=== PATIENT | female | born 1945 | race Caucasian/White ===

== ENCOUNTER 2017-03-31 07:48 | Emergency (ER) | payer OTHER ==
[~2017-03-31] VITALS: Ht 162.6 cm; Wt 67.0 kg
[~2017-03-31 07:48] MED LIST: ASPI-496 PO; CHOL2000 PO; NITR100C56 PO; PRAV20TA2 PO; VALS320T2 PO
[2017-03-31] MEDS ORDERED: BUPIVACAINE/PF-EPI 0.25% 1:200K INFIL ONE (08:00)
[2017-03-31] MEDS ORDERED: OXYMETAZOLINE NASAL SPRAY 0.05%, 15ML ONE (08:00)
[2017-03-31] MEDS ORDERED: BUPIVACAINE 0.25% ONE (08:00)
[2017-03-31] MEDS ORDERED: LIDOCAINE GEL 2%, 5ML ONE (08:04)
[2017-03-31] MEDS ORDERED: LIDOCAINE GEL 2%, 5ML TP ONE (08:30)
[2017-03-31 08:52] VITALS: BP 154/97
[2017-03-31] MEDS ORDERED: FLUTICASONE NASAL SPRAY 16GM NAS SCH (09:00)
== END 2017-03-31 08:55 | disposition home or self-care (01) ==
LOC: ED 08:23
DX: R04.0 Epistaxis (principal); E78.5 Hyperlipidemia, unspecified; I10 Essential (primary) hypertension; Z88.0 Allergy status to penicillin
CPT/HCPCS: 30901; 99284

== ENCOUNTER → 2018-07-03 | Outpatient (CLI) | payer OTHER | END | disposition home or self-care (01) | LOC: CFH 09:19 | PROVIDERS: ATTEND Family Medicine | DX: Z12.31 Encounter for screening mammogram for malignant neoplasm of breast (principal); Z13.820 Encounter for screening for osteoporosis; M85.89 Other specified disorders of bone density and structure, multiple sites; N95.8 Other specified menopausal and perimenopausal disorders | CPT/HCPCS: 77063; 77080; 77067 ==

== ENCOUNTER 2018-10-01 21:56 | Observation (INO) | payer OTHER ==
[~2018-10-01] VITALS: Ht 162.6 cm; Wt 62.5 kg
[2018-10-01] MEDS ORDERED: ACETAMINOPHEN 325 MG TABLET ONE (22:16)
[2018-10-01] MEDS ORDERED: ONDANSETRON 2MG/ML, 2ML ONE (22:17)
[2018-10-01] MEDS ORDERED: KETOROLAC 30 MG/1 ML ONE (22:17)
[2018-10-01] MEDS ORDERED: PROMETHAZINE 25 MG/ML, 1ML IM ONE (22:30)
[2018-10-01] MEDS ORDERED: SODIUM CHLORIDE 0.9% 1,000ML IVBOLUS ONE (22:30)
[2018-10-01] MEDS ORDERED: KETOROLAC 30 MG/1 ML IVPush ONE (22:30)
[2018-10-01] MEDS ORDERED: ACETAMINOPHEN 325 MG TABLET PO ONE (22:30)
[2018-10-01] MEDS ORDERED: SODIUM CHLORIDE FLUSH 10ML SYR IVF ONE (22:30)
[2018-10-01] MEDS ORDERED: ONDANSETRON 2MG/ML, 2ML IVPush ONE (22:30)
[2018-10-01] MEDS ORDERED: hydrALAzine 20 MG/ML, 1ML IV ONE ×2 (22:30→23:30)
[2018-10-01] MEDS ORDERED: hydrALAzine 20 MG/ML, 1ML ONE ×2 (22:32→23:28)
[2018-10-01] MEDS ORDERED: PROMETHAZINE 25 MG/ML, 1ML ONE (22:33)
[2018-10-01 22:36] LABS: BASOPHILS # (AUTO) 0.01 x10^3/uL (0-0.1); BASOPHILS % (AUTO) 0 % (0-1); EOSINOPHILS # (AUTO) 0.01 x10^3/uL (0-0.4); EOSINOPHILS % (AUTO) 0 % (1-7); LYMPHOCYTES # (AUTO) 0.82 x10^3/uL (1-3.4); LYMPHOCYTES % (AUTO) 8 % (22-44); MD NO; MEAN CORPUSCULAR HEMOGLOBIN 31.7 pg (27.0-34.8); MEAN CORPUSCULAR VOLUME 93.1 fL (80-100); MEAN PLATELET VOLUME 7.4 fL (7.4-10.4); MONOCYTES # (AUTO) 0.75 x10^3/uL (0.2-0.8); MONOCYTES % (AUTO) 8 % (2-9); NEUTROPHILS # (AUTO) 8.13 x10^3/uL (1.8-6.8); NEUTROPHILS % (AUTO) 84 % (42-75); PLATELET COUNT 297 x10^3/uL (130-400); RED BLOOD COUNT 4.64 x10^6/uL (3.82-5.3); RED CELL DISTRIBUTION WIDTH 13.4 % (9.6-15.2)
[2018-10-01 22:44] LABS: ALANINE AMINOTRANSFERASE 19 U/L (12-78); ALBUMIN 3.6 g/dL (3.4-5.0); ANION GAP 10 mmol/L (5-15); CALCIUM 8.7 mg/dL (8.5-10.1); CHLORIDE 104 mmol/L (98-107); CREATININE 0.67 mg/dL (0.55-1.02)
[2018-10-01 22:48] LABS: ALKALINE PHOSPHATASE 72 U/L (45-117); BILIRUBIN,TOTAL 0.5 mg/dL (0.2-1.0); TOTAL PROTEIN 7.2 g/dL (6.4-8.2); TROPONIN I < 0.015 ng/mL (0.000-0.045)
[2018-10-01 23:05] LABS: CULTURE INDICATED? YES; MICROSCOPIC INDICATED
[2018-10-01] MEDS ORDERED: NITROGLYCERIN OINT 2%, 1GM TP ONE ×2 (23:29→23:30)
[2018-10-02] MEDS ORDERED: BISACODYL 10 MG SUPP PR PRN
[2018-10-02] MEDS ORDERED: PRAVASTATIN 20 MG TABLET PO SCH
[2018-10-02] MEDS ORDERED: hydrALAzine 20 MG/ML, 1ML IVPush PRN
[2018-10-02] MEDS ORDERED: CHOLECALCIFEROL 1,000 UNIT TABLET PO SCH
[2018-10-02] MEDS ORDERED: ASPIRIN 81 MG TABLET CHEW PO SCH
[2018-10-02] MEDS ORDERED: ONDANSETRON ODT 4 MG PO PRN
[2018-10-02] MEDS ORDERED: VALSARTAN 320 MG TABLET PO SCH
[2018-10-02] MEDS ORDERED: POLYETHYLENE GLYCOL 17 GM PACKET PO PRN
[2018-10-02] MEDS ORDERED: ACETAMINOPHEN 325 MG TABLET PO PRN
[2018-10-02 00:26] VITALS: BP 128/67
[2018-10-02] MEDS: LISINOPRIL 10 MG TABLET PO SCH ×3 (00:54→08:29)
[2018-10-02] MEDS: SODIUM CHLORIDE FLUSH 10ML SYR IVF SCH ×2 (00:54→08:27)
[2018-10-02 04:59] LABS: BASOPHILS # (AUTO) 0.03 x10^3/uL (0-0.1); BASOPHILS % (AUTO) 0 % (0-1); EOSINOPHILS # (AUTO) 0.06 x10^3/uL (0-0.4); EOSINOPHILS % (AUTO) 1 % (1-7); LYMPHOCYTES # (AUTO) 1.55 x10^3/uL (1-3.4); LYMPHOCYTES % (AUTO) 16 % (22-44); MD NO; MEAN CORPUSCULAR HEMOGLOBIN 31.9 pg (27.0-34.8); MEAN CORPUSCULAR HGB CONC 34.3 g/dL (32.4-35.8); MEAN CORPUSCULAR VOLUME 92.8 fL (80-100); MEAN PLATELET VOLUME 7.4 fL (7.4-10.4); MONOCYTES # (AUTO) 1.15 x10^3/uL (0.2-0.8); MONOCYTES % (AUTO) 12 % (2-9); NEUTROPHILS # (AUTO) 6.73 x10^3/uL (1.8-6.8); NEUTROPHILS % (AUTO) 71 % (42-75); PLATELET COUNT 287 x10^3/uL (130-400); RED BLOOD COUNT 4.13 x10^6/uL (3.82-5.3); RED CELL DISTRIBUTION WIDTH 13.3 % (9.6-15.2)
[2018-10-02 05:09] LABS: ANION GAP 10 mmol/L (5-15); CALCIUM 8.1 mg/dL (8.5-10.1); CHLORIDE 105 mmol/L (98-107)
[2018-10-02 05:15] LABS: ALANINE AMINOTRANSFERASE 17 U/L (12-78); ALKALINE PHOSPHATASE 58 U/L (45-117); BILIRUBIN,TOTAL 0.6 mg/dL (0.2-1.0); CREATININE 0.58 mg/dL (0.55-1.02); TROPONIN I 0.024 ng/mL (0.000-0.045)
[2018-10-02 07:27] VITALS: BP 146/80
[2018-10-02] MEDS ORDERED: SENNA/DOCUSATE TABLET PO SCH (09:00)
[2018-10-02 11:33] LABS: TROPONIN I < 0.015 ng/mL (0.000-0.045)
[2018-10-02 11:50] VITALS: BP 159/91
[2018-10-02 11:55] VITALS: BP 159/94
[2018-10-02] MEDS ORDERED: KETOROLAC 30 MG/1 ML IVPush ONE (12:00)
[2018-10-02 13:30] VITALS: BP 127/67
[2018-10-02] MEDS: BENZONATATE 100 MG CAPSULE PO SCH ×2 (13:34→16:29)
== END 2018-10-02 16:56 | disposition home or self-care (01) ==
LOC: ED 22:20 → INTOOBSV 23:38 → EDIP 23:38 → 5SO 10-02 00:14 → DCLOUNGE 10-02 16:50
PROVIDERS: ADMIT Internal Medicine; ATTEND Internal Medicine
DX: I16.9 Hypertensive crisis, unspecified (principal); I38 Endocarditis, valve unspecified; E78.5 Hyperlipidemia, unspecified; R11.2 Nausea with vomiting, unspecified; I65.21 Occlusion and stenosis of right carotid artery; Z90.49 Acquired absence of other specified parts of digestive tract; Z86.73 Personal history of transient ischemic attack (TIA), and cerebral infarction without residual deficits; Z82.49 Family history of ischemic heart disease and other diseases of the circulatory system; Z85.828 Personal history of other malignant neoplasm of skin; Z90.721 Acquired absence of ovaries, unilateral; Z79.82 Long term (current) use of aspirin; Z79.899 Other long term (current) drug therapy
CPT/HCPCS: 36415; 70450; 71045; 80053; 81001; 83605; 84145; 84484; 85025; 87040; 87086; 93005; 96372; 96374; 96375; 96376; 99291; G0378; J0360; J1885; J2405; J2550; J7030; 96361

== ENCOUNTER → 2019-02-02 | Outpatient (CLI) | payer MEDICARE, OTHER | END | disposition home or self-care (01) | LOC: CVU 10:03 | PROVIDERS: ATTEND Internal Medicine Cardiovascular Disease | DX: I65.23 Occlusion and stenosis of bilateral carotid arteries (principal); I10 Essential (primary) hypertension; E78.5 Hyperlipidemia, unspecified | CPT/HCPCS: 93880 ==

== ENCOUNTER 2019-07-06 08:42 | Outpatient (CLI) | payer MEDICARE | END 2019-07-06 23:59 | disposition home or self-care (01) | LOC: RAD 08:42 | PROVIDERS: ATTEND Family Medicine | DX: R13.12 Dysphagia, oropharyngeal phase (principal); K22.5 Diverticulum of esophagus, acquired; J39.2 Other diseases of pharynx | CPT/HCPCS: 74220 ==

== ENCOUNTER → 2020-08-22 | Outpatient (CLI) | payer MEDICARE | END | disposition home or self-care (01) | LOC: CVU 08:28 | PROVIDERS: ATTEND Internal Medicine Cardiovascular Disease | DX: I65.23 Occlusion and stenosis of bilateral carotid arteries (principal) | CPT/HCPCS: 93880 ==

== ENCOUNTER → 2021-01-16 | Outpatient (CLI) | payer MEDICARE | END | disposition home or self-care (01) | LOC: RAD 09:46 | PROVIDERS: ATTEND Family Medicine | DX: K22.5 Diverticulum of esophagus, acquired (principal) | CPT/HCPCS: 74230 ==

== ENCOUNTER → 2021-06-28 | Outpatient (CLI) | payer MEDICARE | END | disposition home or self-care (01) | LOC: CFH 09:00 | PROVIDERS: ATTEND Family Medicine | DX: Z12.31 Encounter for screening mammogram for malignant neoplasm of breast (principal); N95.9 Unspecified menopausal and perimenopausal disorder; M85.80 Other specified disorders of bone density and structure, unspecified site | CPT/HCPCS: 77063; 77067; 77080 ==